=== PATIENT | female | born 1990 | race Caucasian/White ===

== ENCOUNTER 2021-01-27 05:30 | Inpatient (IN) | payer BC, OTHER ==
[2021-01-27] MEDS ORDERED: Promethazine HCl 25 MG/ML VIAL IM PRN ×3 (06:02→22:46)
[2021-01-27] MEDS ORDERED: HYDROcodone/Acetaminophen 5/325 mg Tablet PO PRN ×2 (06:02)
[2021-01-27] MEDS ORDERED: Docusate 100 MG CAP PO PRN (06:02)
[2021-01-27] MEDS ORDERED: Lidocaine 1% (PF) 30 ML VIAL SC PRN (06:02)
[2021-01-27] MEDS ORDERED: Misoprostol 200 MCG TAB PR PRN (06:02)
[2021-01-27] MEDS ORDERED: Ibuprofen 800 MG TAB PO PRN (06:02)
[2021-01-27] MEDS ORDERED: Butorphanol Tartrate 1 MG/ML VIAL SLOW IVP PRN (06:02)
[2021-01-27] MEDS ORDERED: hydrALAZINE 20 MG/ML VIAL SLOW IVP PRN ×2 (06:02→22:46)
[2021-01-27] MEDS ORDERED: Ondansetron PF 4 MG/2 ML Vial IVP PRN ×3 (06:02→22:46)
[2021-01-27] MEDS ORDERED: Carboprost 250 MCG/ML AMP IM PRN (06:02)
[2021-01-27] MEDS ORDERED: Diphenoxylate HCl/Atropine Tablet PO PRN ×2 (06:02)
[2021-01-27] MEDS ORDERED: Acetaminophen 500 MG TAB PO PRN (06:02)
[2021-01-27] MEDS ORDERED: NS w/ Oxytocin 30 units 500 ML IV SCH ×3 (06:15→22:46)
[2021-01-27] MEDS ORDERED: NS w/ Oxytocin 30 units 500 ML IVPB SCH (06:15)
[2021-01-27 06:28] VITALS: BMI 30.1
[2021-01-27 06:54] LABS: Hemoglobin 12.7 g/dL (12.0-15.5); Mean Corpuscular HGB CONC 34.1 g/dL (32.0-36.0); Mean Corpuscular Volume 87.9 fl (81.6-98.3); Mean Platelet Volume 11.2 fl (7.4-10.4); Platelet Count 209 10x3/uL (150-450); RBC Distribution Width 13.9 % (11.5-14.5); Red Blood Cell (RBC) Count 4.23 10x6/uL (3.90-5.03); White Blood Cell (WBC) Count 10.3 10x3/uL (3.5-10.5)
[2021-01-27] MEDS: Misoprostol 100 MCG TAB VAG SCH ×2 (07:23→11:31)
[2021-01-27 07:43] LABS: Syphilis Antibody Nonreactive (Nonreactive); Syphilis Antibody Index 0.05 S/CO (<1.00 Non-Reactive)
[2021-01-27 07:45] LABS: Hep B Surf Ag Non-Reactive S/CO (NonReactive)
[2021-01-27 07:56] LABS: HBSAg Index 0.22 S/CO (0-0.99)
[2021-01-27] MEDS ORDERED: Fentanyl 2 mcg/Bup 0.1% Cadd 100 ML ONE (10:00)
[2021-01-27] MEDS ORDERED: Hydrocerin (Eucerin) Cream 120 gm Jar TOP PRN (10:25)
[2021-01-27] MEDS ORDERED: Lactated Ringer's 500 ML IV PRN (10:25)
[2021-01-27] MEDS ORDERED: diphenhydrAMINE 50 MG/ML VIAL IVP PRN (10:25)
[2021-01-27] MEDS ORDERED: ePHEDrine Sulfate 50 MG/10 ML VIAL SLOW IVP PRN (10:25)
[2021-01-27] MEDS ORDERED: Acetaminophen 325 MG TAB PO PRN (10:25)
[2021-01-27] MEDS ORDERED: Naloxone HCl 0.4 mg/ml Vial IVP PRN ×2 (10:25)
[2021-01-27] MEDS ORDERED: Communication Order-Pharmacy FS SCH (10:30)
[2021-01-27] MEDS: Lactated Ringer's 1,000 ML IV SCH (10:30)
[2021-01-27] MEDS ORDERED: Fentanyl 2 mcg/Bupivacaine 0.1% Cassette 100 ML EPIDURAL SCH (10:30)
[2021-01-27] MEDS ORDERED: Milk Of Magnesia 30 ML UDCUP PO PRN (22:46)
[2021-01-27] MEDS ORDERED: diphenhydrAMINE 25 MG CAP PO PRN (22:46)
[2021-01-27] MEDS ORDERED: Varicella virus, LIVE 0.5 ML VIAL SC ONE (22:46)
[2021-01-27] MEDS ORDERED: Preparation H Ointment 28 GM TUBE PR PRN (22:46)
[2021-01-27] MEDS ORDERED: Bisacodyl 10 MG SUPP PR PRN (22:46)
[2021-01-27] MEDS ORDERED: Boostrix 0.5 ML (Tdap) VIAL IM ONE (22:46)
[2021-01-27] MEDS ORDERED: Lanolin Ointment 7 GM TUBE TOP PRN (22:46)
[2021-01-27] MEDS ORDERED: Measles/Mumps/Rubella 10 MCG/0.5 ML VIAL SC ONE (22:46)
[2021-01-27] MEDS ORDERED: Benzocaine-Menthol 82.5 ML CAN TOP PRN (22:46)
[2021-01-27] MEDS ORDERED: Methylergonovine 0.2 MG/ML VIAL IM PRN (22:46)
[2021-01-27] MEDS ORDERED: Zolpidem Tartrate 5 MG TAB PO PRN (22:46)
[2021-01-27] MEDS: Docusate Calcium (SURFAK) 240 MG CAP PO SCH (23:16)
[2021-01-27] MEDS: Ibuprofen 800 MG TAB PO SCH (23:16)
[2021-01-28] MEDS: Ibuprofen 800 MG TAB PO SCH ×3 (06:03→21:27)
[2021-01-28 06:14] LABS: Hemoglobin 11.5 g/dL (12.0-15.5); Mean Corpuscular HGB CONC 33.8 g/dL (32.0-36.0); Mean Corpuscular Hemoglobin 30.3 pg (27.0-33.0); Mean Corpuscular Volume 89.5 fl (81.6-98.3); Mean Platelet Volume 10.9 fl (7.4-10.4); Platelet Count 171 10x3/uL (150-450); RBC Distribution Width 14.1 % (11.5-14.5); White Blood Cell (WBC) Count 11.4 10x3/uL (3.5-10.5)
[2021-01-28] MEDS: Misoprostol 100 MCG TAB VAG SCH ×2 (07:30→07:31)
[2021-01-28] MEDS: Lactated Ringer's 1,000 ML IV SCH (07:31)
[2021-01-28] MEDS: Docusate Calcium (SURFAK) 240 MG CAP PO SCH ×2 (08:39→21:27)
[2021-01-28] MEDS: HYDROcodone/Acetaminophen 5/325 mg Tablet PO PRN ×2 (10:47→16:52)
[2021-01-28] MEDS: Prenatal Vitamin 1 TAB PO SCH (10:48)
[2021-01-28] MEDS: Ferrous Sulfate 325 MG TAB PO SCH ×2 (10:48→16:51)
[2021-01-29 07:54] VITALS: BP 102/55; TEMP 98.5
[2021-01-29] MEDS: Ibuprofen 800 MG TAB PO SCH (09:03)
[2021-01-29] MEDS: Prenatal Vitamin 1 TAB PO SCH (09:04)
[2021-01-29] MEDS: Ferrous Sulfate 325 MG TAB PO SCH (09:04)
[2021-01-29] MEDS: Docusate Calcium (SURFAK) 240 MG CAP PO SCH (09:04)
== END 2021-01-29 12:35 | disposition home or self-care (01) | DRG 807 ==
LOC: CSHLD 05:33 → CSHPP 22:00
PROVIDERS: ADMIT Obstetrics & Gynecology; ATTEND Obstetrics & Gynecology
PROC: 10E0XZZ Delivery of Products of Conception, External Approach (ICD-10-PCS; principal; 2021-01-27)
PROC: 10907ZC Drainage of Amniotic Fluid, Therapeutic from Products of Conception, Via Natural or Artificial Opening (ICD-10-PCS; 2021-01-27)
PROC: 3E0P7VZ Introduction of Hormone into Female Reproductive, Via Natural or Artificial Opening (ICD-10-PCS; 2021-01-27)
PROC: 3E033VJ Introduction of Other Hormone into Peripheral Vein, Percutaneous Approach (ICD-10-PCS; 2021-01-27)
DX: O70.0 First degree perineal laceration during delivery (principal); Z37.0 Single live birth; Z90.721 Acquired absence of ovaries, unilateral; Z20.822 Contact with and (suspected) exposure to COVID-19; Z3A.39 39 weeks gestation of pregnancy
CPT/HCPCS: 36415; 51702; 85027; 86780; 86850; 86900; 86901; 87340; J1200; J2590; J7120